=== PATIENT | male | born 1940 | race African-American/Black ===

== ENCOUNTER 2025-04-30 15:11 | Inpatient (IN) | payer OTHER, MEDICARE ==
[~2025-04-30] VITALS: Ht 167.6 cm; Wt 71.7 kg
[2025-04-30 15:17] VITALS: O2SAT 97
[2025-04-30] MEDS: SODIUM CHLORIDE 0.9% 1,000 ML IV ONE ×2 (15:48→20:35)
[2025-04-30] MEDS: CEFTRIAXONE 1GM/50ML 50 ML IV ONE (15:51)
[2025-04-30 16:02] LABS: HEMATOCRIT. 45.3 % (42.0-52.0); HEMOGLOBIN. 14.7 g/dL (14.0-18.0); MEAN PLATELET VOLUME 8.4 fl (7.4-10.4); PLATELET 145 x1000/uL (130-400); RED BLOOD CELL COUNT 4.79 mill/uL (4.7-6.1); RED CELL DISTRIBUTION WIDTH 15.3 % (11.6-14.6)
[2025-04-30 16:18] LABS: CREATININE 1.8 mg/dL (0.6-1.3); UREA NITROGEN BLOOD 24 mg/dL (9-23)
[2025-04-30 16:19] LABS: PROTEIN TOTAL 7.8 g/dL (6.0-8.3)
[2025-04-30 16:20] LABS: ASPARTATE AMINOTRANSFERASE 53 IU/L (<34); BILIRUBIN DIRECT 0.2 mg/dL (<=3.0); BILIRUBIN TOTAL 0.5 mg/dL (0.1-1.0)
[2025-04-30 16:25] LABS: TROPONIN I HIGH SENSITIVITY 144 ng/L (3.0-53)
[2025-04-30 16:33] LABS: INR 0.9
[2025-04-30] MEDS ORDERED: AZITHROMYCIN 500MG/250ML 250 ML IV ONE (17:15)
[2025-04-30 17:27] LABS: BAND% 11.0 % (1.0-6.0); LYMPHOCYTES % MANUAL 8.0 % (20.0-50.0); MONOCYTES % MANUAL 4.0 % (2.0-8.0); NEUTROPHILS % MANUAL 77.0 % (45.0-75.0); PLATELET ESTIMATE NORMAL
[2025-04-30] MEDS: AZITHROMYCIN 500MG/250ML 250 ML IV SCH (18:33)
[2025-04-30] MEDS ORDERED: GUAIFENESIN 200MG/10ML SUGAR FREE UDC PO PRN (20:30)
[2025-04-30] MEDS ORDERED: MAGNESIUM/ALUMINUM HYDROXIDE/SIMETHICONE 30ML UDC PO PRN (20:30)
[2025-04-30] MEDS ORDERED: ONDANSETRON HCL 4MG/2ML INJ IV PRN (20:30)
[2025-04-30] MEDS ORDERED: DOCUSATE SODIUM 100MG CAPSULE PO PRN (20:30)
[2025-04-30] MEDS ORDERED: AZITHROMYCIN 500 MG in DEXT 5% WATER 250 ML IV SCH (20:30)
[2025-04-30] MEDS ORDERED: ACETAMINOPHEN 325MG TABLET PO PRN (20:30)
[2025-04-30] MEDS ORDERED: IPRATROPIUM/ALBUTEROL 0.5-3(2.5)MG/3ML NEB HHN PRN (20:30)
[2025-04-30] MEDS: ASPIRIN 325MG EC TABLET PO ONE (20:34)
[2025-04-30] MEDS: CLOPIDOGREL 75MG TABLET PO ONE (20:34)
[2025-04-30] MEDS: SODIUM CHLORIDE 0.9% 1,000 ML IV SCH (21:00)
[2025-04-30 21:45] VITALS: BP 116/64; PULSE 81; RESP 16; TEMP 36.3068
[2025-04-30 22:23] LABS: PHOSPHORUS 3.0 mg/dL (2.5-4.9)
[2025-04-30 22:26] LABS: VITAMIN B12 SERUM 1171 pg/mL (211-911)
[2025-04-30] MEDS: SODIUM CHLORIDE 0.9% 3ML FLUSH IVF SCH (22:57)
[2025-05-01] MEDS: GUAIFENESIN 600MG ER TABLET PO SCH (00:47)
[2025-05-01] MEDS: MULTIVITAMINS,THER W-MINERALS TABLET PO SCH (00:47)
[2025-05-01] MEDS: ACETAMINOPHEN 325MG TABLET PO PRN (00:48)
[2025-05-01 02:11] LABS: CREATININE 1.3 mg/dL (0.6-1.3); UREA NITROGEN BLOOD 24 mg/dL (9-23)
[2025-05-01] MEDS: ENOXAPARIN 30MG/0.3ML SYR SUBCUT SCH (02:27)
[2025-05-01] MEDS ORDERED: AMLO5TAB88 PO (02:57)
[2025-05-01] MEDS ORDERED: ASPI-1497 PO (02:58)
[2025-05-01] MEDS ORDERED: ATOR40TA70 PO (03:01)
[2025-05-01] MEDS ORDERED: BUPR-74 PO (03:01)
[2025-05-01] MEDS ORDERED: NICO-645 TP (03:02)
[2025-05-01] MEDS ORDERED: PANT40TA51 PO (03:04)
[2025-05-01] MEDS ORDERED: TAMS-54 PO (03:04)
[2025-05-01] MEDS ORDERED: LISI2.5T47 PO (03:06)
[2025-05-01] MEDS ORDERED: CLOP-31 PO (03:07)
[2025-05-01] MEDS ORDERED: METO25TA6 PO (03:08)
[2025-05-01 08:00] VITALS: BP 100/60; PULSE 58; RESP 16; TEMP 36.9; O2SAT 96
[2025-05-01] MEDS: AZITHROMYCIN 500 MG TABLET PO SCH (08:43)
[2025-05-01] MEDS: ASPIRIN 81MG EC TABLET PO SCH (08:43)
[2025-05-01] MEDS ORDERED: CEFTRIAXONE 1GM/50ML 50 ML IV SCH (09:00)
[2025-05-01] MEDS ORDERED: ENOXAPARIN 30MG/0.3ML SYR SUBCUT SCH (09:00)
[2025-05-01] MEDS: MAGNESIUM 2 G PREMIX 50 ML IV SCH (10:00)
[2025-05-01 12:00] VITALS: BP 145/70; PULSE 75; RESP 16; TEMP 36.4; O2SAT 96
[2025-05-01 12:46] LABS: BASOPHILS % 0.4 % (0.0-2.0); EOSINOPHILS % 0.2 % (0.0-5.0); HEMATOCRIT. 38.1 % (42.0-52.0); HEMOGLOBIN. 12.5 g/dL (14.0-18.0); LYMPHOCYTES % 14.0 % (20.0-50.0); MEAN PLATELET VOLUME 8.4 fl (7.4-10.4); MONOCYTES % 8.7 % (2.0-8.0); NEUTROPHILS % 76.7 % (40.0-76.0); PLATELET 121 x1000/uL (130-400); RED BLOOD CELL COUNT 4.07 mill/uL (4.7-6.1); RED CELL DISTRIBUTION WIDTH 15.1 % (11.6-14.6)
[2025-05-01 13:16] LABS: CREATININE 1.3 mg/dL (0.6-1.3)
[2025-05-01 13:18] LABS: LDL CHOLESTEROL 41 mg/dL (5-100); T4 FREE 0.99 ng/dL (0.89-1.76); TRIGLYCERIDE 126 mg/dL (0-150); UREA NITROGEN BLOOD 22 mg/dL (9-23)
[2025-05-01 13:47] LABS: TROPONIN I HIGH SENSITIVITY 91 ng/L (3.0-53)
[2025-05-01 13:48] LABS: TROPONIN I HIGH SENSITIVITY 89 ng/L (3.0-53)
[2025-05-01] MEDS: CEFTRIAXONE 1GM/50ML 50 ML IV SCH (15:16)
[2025-05-01 16:00] VITALS: BP 107/66; PULSE 65; RESP 17; TEMP 36.2; O2SAT 98
[2025-05-01] MEDS ORDERED: SODIUM CHLORIDE 0.9% 1,000 ML IV SCH (19:00)
[2025-05-01] MEDS ORDERED: LORAZEPAM 2MG/ML UD SYRINGE IV PRN (19:00)
[2025-05-01] MEDS ORDERED: DEXTROSE 50% WATER 50ML SYRINGE IV PRN (19:15)
[2025-05-01] MEDS ORDERED: TAMSULOSIN HCL 0.4MG SR CAPSULE PO SCH (21:00)
[2025-05-01] MEDS ORDERED: PIPERACILLIN/TAZO 3.375G/50ML 50 ML IV SCH (22:00)
== END 2025-05-01 20:14 | disposition short-term general hospital (02) | DRG 871 ==
LOC: ER 15:11 → EDBEDREQ 18:57 → EDBEDREQTM 18:57 → ENRESERV 21:14 → 6WST 21:45
PROVIDERS: ADMIT Hospitalist; ATTEND Hospitalist
DX: A41.9 Sepsis, unspecified organism (principal); I21.A1 Myocardial infarction type 2; J69.0 Pneumonitis due to inhalation of food and vomit; J18.9 Pneumonia, unspecified organism; E87.20 Acidosis, unspecified; M62.82 Rhabdomyolysis; I48.0 Paroxysmal atrial fibrillation; E86.1 Hypovolemia; N17.9 Acute kidney failure, unspecified; R65.20 Severe sepsis without septic shock; Z79.02 Long term (current) use of antithrombotics/antiplatelets; N18.9 Chronic kidney disease, unspecified; I12.9 Hypertensive chronic kidney disease with stage 1 through stage 4 chronic kidney disease, or unspecified chronic kidney disease; I67.82 Cerebral ischemia; Z20.822 Contact with and (suspected) exposure to COVID-19; E78.5 Hyperlipidemia, unspecified; F17.210 Nicotine dependence, cigarettes, uncomplicated; E83.42 Hypomagnesemia; I25.10 Atherosclerotic heart disease of native coronary artery without angina pectoris; Z95.5 Presence of coronary angioplasty implant and graft
CPT/HCPCS: 36415; 71045; 72170; 78580; 80048; 80061; 80076; 82550; 82607; 82962; 83605; 83735; 83880; 84100; 84145; 84439; 84443; 84484; 85025; 85379; 86850; 86900; 87426; 93005; 93971; 96365; 96367; 99291; J0456; J0696; J1650; J3475; J7030